=== PATIENT | male | born 1945 | race African-American/Black ===

== ENCOUNTER 2018-09-08 11:29 | Emergency (ER) | payer MEDICARE ==
[~2018-09-08] VITALS: Ht 172.7 cm; Wt 57.0 kg
[2018-09-08] MEDS ORDERED: FOLIC ACID 1 MG, THIAMINE HCL 100 MG, MVI, ADULT NO.1 10 ML in DEXTROSE 5% WATER 1,000 ML IV ONE ×4 (12:15)
[2018-09-08] MEDS ORDERED: ONDANSETRON HCL 4MG/2ML INJ IV ONE (12:15)
[2018-09-08 12:51] LABS: HEMATOCRIT. 44.5 % (42.0-52.0); HEMOGLOBIN. 14.4 g/dL (14.0-18.0); MEAN CORPUSCULAR HEMOGLOBIN 30.9 pg (28.0-32.0); MEAN CORPUSCULAR VOLUME 95.7 fL (80.0-94.0); MEAN PLATELET VOLUME 10.3 fl (7.4-10.4); PLATELET 171 x1000/uL (130-400); RED BLOOD CELL COUNT 4.65 mill/uL (4.7-6.1); RED CELL DISTRIBUTION WIDTH 12.6 % (11.6-14.6)
[2018-09-08 12:56] LABS: CHLORIDE 103 mEq/L (98-107)
[2018-09-08 13:01] LABS: ETHANOL BLOOD 42 mg/dL
[2018-09-08 13:40] LABS: PLATELET ESTIMATE NORMAL
[2018-09-08 16:54] VITALS: BP 153/69
== END 2018-09-08 17:30 | disposition home or self-care (01) ==
LOC: ER 11:29
DX: F10.129 Alcohol abuse with intoxication, unspecified (principal); I10 Essential (primary) hypertension; E16.2 Hypoglycemia, unspecified; E86.0 Dehydration; D72.829 Elevated white blood cell count, unspecified; Y90.2 Blood alcohol level of 40-59 mg/100 ml
CPT/HCPCS: 36415; 70450; 72125; 80048; 80307; 80329; 85025; 87186; 96365; 96375; 99284; J2405; J3411; J3490; J7070